=== PATIENT | male | born 1990 | race African-American/Black ===

== ENCOUNTER 2019-02-15 03:01 | Emergency (ER) | payer OTHER ==
[~2019-02-15] VITALS: Ht 165.1 cm; Wt 75.0 kg
[2019-02-15 03:03] VITALS: BP 146/101
[2019-02-15] MEDS ORDERED: LIDOcaine 1% W/epiNEPHrine 1:200,000 10ml vial IJ ONE (03:45)
[2019-02-15] MEDS ORDERED: TETanus/Pertussis (Acell)/Diphther VAC/PF (Tdap-Adult) 0.5ml syringe IMVAC ONE (03:45)
[2019-02-15] MEDS ORDERED: CEPH250T PO (04:26)
[2019-02-15] MEDS ORDERED: HYDROcodone/acetaminophen 10/325mg tab PO ONE (04:30)
--- NOTE | 2019-02-16 16:38 | NUR ---
Patient called. He wanted to clarify head wound discharge instructions. Reports that they were not clear. educated via phone that donna should be kept clean and dry. Do not get wet for 24-48 hours. After this may shower. May return to work. Donna to be removed in 10 days per previous instructions.
== END 2019-02-15 04:59 | disposition home or self-care (01) ==
LOC: ER 03:02
DX: S06.0X0A Concussion without loss of consciousness, initial encounter (principal); S01.81XA Laceration without foreign body of other part of head, initial encounter; S60.221A Contusion of right hand, initial encounter; Q87.0 Congenital malformation syndromes predominantly affecting facial appearance; Z98.890 Other specified postprocedural states; W01.198A Fall on same level from slipping, tripping and stumbling with subsequent striking against other object, initial encounter; Y93.89 Activity, other specified; Y92.098 Other place in other non-institutional residence as the place of occurrence of the external cause; Y99.9 Unspecified external cause status
CPT/HCPCS: 12013; 90471; 90715; 99283